=== PATIENT | female | born 1955 | race Caucasian/White ===

== ENCOUNTER 2017-03-21 19:28 | Inpatient (IN) | payer BC ==
[~2017-03-21] VITALS: Ht 157.5 cm; Wt 67.6 kg
[~2017-03-21 19:28] MED LIST: ADVIN10/60 INH; ALBU1AER9 INH; ATOR-22 PO; CALC500C70 PO; EYE PROMISE RESTORE PO; JUICE PLUS PO
[2017-03-21] MEDS ORDERED: ASPI81TA28 PO (20:08)
[2017-03-21] MEDS ORDERED: LEVO-366 PO (20:08)
[2017-03-21] MEDS ORDERED: ZOLM1TAB3 PO (20:08)
[2017-03-21] MEDS ORDERED: PIPERACILLIN/TAZOBACTAM 4.5 GM/100ML D5W IV STA (20:34)
[2017-03-21] MEDS ORDERED: VANCOMYCIN INJ 1,500 MG in SODIUM CHLORIDE 0.9% 500ML 500 ML IV STA (20:34)
[2017-03-21 21:04] LABS: BASO % 0.1 %; BASO ABS # 0.01 K/uL (0-0.2); COMPLETE YES; EOS % 1.4 %; HEMATOCRIT 40.2 % (37-47); IG% 0.4 %; LYMPH % 23.2 %; MEAN CORPUSCULAR HEMOGLOBIN 29.3 pg (25-34); MEAN CORPUSCULAR HGB CONC 33.3 g/dl (32-36); MEAN PLATELET VOLUME 10.4 fL (7.4-10.4); MONO % 8.5 %; NEUT % 66.4 %; PLATELET COUNT 241 K/uL (130-400); RED BLOOD COUNT 4.57 M/uL (4.2-5.4); WHITE BLOOD COUNT 10.36 K/uL (4.8-10.8)
[2017-03-21 21:21] LABS: CALCIUM 9.3 mg/dl (8.5-10.1); CREATININE 1.1 mg/dl (0.60-1.20); POTASSIUM 3.7 mmol/L (3.5-5.1)
[2017-03-21] MEDS ORDERED: ACETAMINOPHEN 325 MG TAB PO PRN (21:30)
[2017-03-21] MEDS ORDERED: IBUPROFEN 200 MG TAB PO PRN (21:30)
[2017-03-21] MEDS ORDERED: PROMETHAZINE HCL INJ 12.5 MG in SODIUM CHLORIDE 0.9% 50ML 50 ML IV PRN (21:30)
[2017-03-21] MEDS ORDERED: DiphenhydrAMINE HCL 50 MG/ML VIAL IV PRN (21:30)
[2017-03-21] MEDS ORDERED: FLUTICASONE/SALMETEROL 100/50 (ADVAIR) 14 PUFF/1 INHALER INH PRN (21:30)
--- NOTE | 2017-03-21 21:51 | DIAGNOSTIC IMAGING REPORT ---
BREAST LIMITED UNILATERAL CLINICAL HISTORY: 62 years-old Female presenting with cellulitis, implants, concern for abscess. TECHNIQUE: Real-time grayscale ultrasound imaging of the left breast was performed. Color Doppler was also performed. COMPARISON: None. FINDINGS: The left breast implants demonstrates a single well demarcated interface with the overlying breast tissue and clear visualization of the implant contents, consistent with an intact implant. Mild overlying hyperemia of the subcutaneous tissue cannot be excluded. No focal soft tissue fluid collection suggest abscess. IMPRESSION: 1. Intact implants. 2. No evidence of abscess. 3. Subcutaneous hyperemia could suggest cellulitis. Electronically signed by: Keith Oliva M.D. 03/21/2017 9:49 PM Dictated Date/Time: 03/21/2017 9:48 PM
--- NOTE | 2017-03-21 21:53 | DIAGNOSTIC IMAGING REPORT ---
BREAST LIMITED UNILATERAL CLINICAL HISTORY: 62 years-old Female presenting with cellulitis, implants, concern for abscess. TECHNIQUE: Real-time grayscale ultrasound imaging of the right breast was performed. Color Doppler was also performed. COMPARISON: None. FINDINGS: Well demarcated interface of the right breast implant with overlying soft tissue of the right breast, consistent with an intact implant. Mild overlying subcutaneous hyperemia may be present. No focal fluid collection. Trace laminar fluid superficial to the implant noted. IMPRESSION: 1. Intact implant. 2. No evidence of abscess. 3. Trace laminar fluid superficial to the implant could be normal or reactive in the setting of cellulitis. Electronically signed by: Keith Oliva M.D. 03/21/2017 9:51 PM Dictated Date/Time: 03/21/2017 9:50 PM
[2017-03-21] MEDS ORDERED: IV FLUIDS COMPLETED PRN (22:00)
[2017-03-21] MEDS ORDERED: VANCOMYCIN CONSULT ACTIVE PRN (22:00)
[2017-03-21] MEDS ORDERED: PIPERACILL/TAZOBAC CONSULT ACTIVE PRN (22:00)
--- NOTE | 2017-03-21 22:17 | HISTORY & PHYSICAL EXAMINATION ---
DATE OF ADMISSION: 03/21/2017 REASON FOR ADMISSION: Bilateral breast cellulitis. HISTORY OF PRESENT ILLNESS: The patient is a 62-year-old female known to me from breast reconstructive surgery. She underwent right mastectomy with sentinel lymph node biopsy performed by Dr. Isaac in 2009. Subsequent to this, she was evaluated by Dr. Johnson for prophylactic left mastectomy. At that point in time, she desired to proceed with reconstruction. We performed a first stage immediate breast reconstruction on the left, delayed reconstruction on the right using tissue expanders and AlloDerm. Overall, she did well, with a small hematoma of the right breast which resolved. She underwent implant exchange on 02/18/2016. Allergan style 410 anatomic implants were placed. She had MARIA EUGENIA drain in place for several days following the procedure, which were removed. Her recovery process was uneventful. She has not been seen in my office at the end of February 2016. Earlier this morning, around 12 hours prior to her admission, she contacted me via the answering service with concerns about redness along her incisions. She states for about the last 5-6 weeks, she has just generally felt malaise. She had a recent upper respiratory infection, approximately 1 month ago with sore throughout. States over the last 5 days or so, she has just generally not felt well and have low-grade temperature of 99/100. Yesterday, she laid on the couch most of the day with a fever of 100-101. Today, she noted that she had some tenderness in her breast, but did not think to look at this until this morning. She states this morning she had some incisional redness bilaterally, with a streak of the right breast which she described as being the size of 3 silver dollars. We discussed options via telephone and I suggested that she come to the Emergency Room for evaluation and possible IV antibiotics. Alternative option would be oral Levaquin with office followup. She elected Levaquin, and this was sent electronically to her pharmacy earlier today. However, around 8:30 this evening, she presented to the Emergency Department and I was contacted by Dr. Burgos to evaluate her. She stated the redness had began to spread and was located substantially on both breasts. She reports tenderness. She has not been febrile since the ER. She does note also that she had some pimples on her left chest which she is scratched previously. She denies any recent history of colonoscopy, dental work, or other symptoms such as urinary tract infection. PAST MEDICAL HISTORY: Significant for breast cancer as noted, migraines, trigeminal neurology, history of asthma and hyperlipidemia. PAST SURGICAL HISTORY: Significant for bilateral mastectomy, sentinel lymph node biopsy, breast reconstruction with implants, hysterectomy, stent placement, anterior vesicourethropexy. MEDICATIONS: Include Advair, aspirin, atorvastatin, calcium with vitamin D, simvastatin, Zomig. ALLERGIES: SULFA DRUGS. FAMILY HISTORY: Significant for breast and ovarian cancer. SOCIAL HISTORY: She is a social drinker, nonsmoker and and lives with her . REVIEW OF SYSTEMS: CONSTITUTIONAL: Positive for fever and malaise as noted, positive for sore through approximately 1 month ago. CARDIOVASCULAR: Negative. GASTROINTESTINAL: Negative. GENITOURINARY: Negative. RENAL: Negative. SKIN: As noted in the HPI. PHYSICAL EXAMINATION: GENERAL: Shows 62-year-old female resting comfortably and in no distress. She is currently afebrile with a temperature of 36.9, pulse 81, respirations 18, blood pressure 138/87 and 97% on room air. HEART: Regular rate and rhythm. LUNGS: Clear. BREASTS: Show reconstructed breasts bilaterally. They are soft without evidence of capsular contracture. There is erythema present along both scars, and extending superiorly and inferiorly along the scars about 4 cm on either side. Cellulitis does not cross the inframammary fold or the midline and is present on both breasts. There are some small healing ulcerations consistent with healing comedones. Breasts are minimally tender to palpation. ABDOMEN: Soft, nontender. LABORATORY STUDIES: Show white blood cell count of 10.3, hemoglobin 13, platelets 241. Sodium 140, potassium 3.7, creatinine 1.1. Ultrasound has been ordered by the Emergency Department and is pending at this time. IMPRESSION: Bilateral breast cellulitis. PLAN: This is a highly unusual for a reconstruction this far out. I do have concerns that she was bacteremic with her upper respiratory infection and has seated her implants. We discussed options for treatment. I agree with obtaining an ultrasound as this will help to determine whether there is any abscess or seroma. Discussed that since she did present to the Emergency Department instead of attempting to remain on oral antibiotics at home, I would recommend that she come in for observation. I feel she will likely need at least 48 hours worth of intravenous antibiotics to determine whether she will turn to corner or whether implants to be removed. We discussed that in some cases if this is unresponsive to antibiotics, she may need to have the implants removed, although we could consider removal with a washout and placement of new implants if we could get the cellulitis under control. Also, discussed that while highly unlikely, she does have textured breast implants in place, and therefore we should be considering breast implant associated lipoma as a possible diagnosis given the late onset of presentation in this case. If there are a seroma noted on ultrasound, it would be elaine to consider aspiration to send for cytometry. Vancomycin and Zosyn have been ordered. Consultation will be placed to infectious disease. Further management will be determined based on clinical response to antibiotics.
[2017-03-21 22:21] VITALS: O2SAT 98
[2017-03-21 23:45] VITALS: Ht 157.5 cm; Wt 67.6 kg
--- NOTE | 2017-03-22 01:55 | EMERGENCY ROOM VISIT NOTE ---
History Report prepared by Emelia: Kathleen Huber Under the Supervision of: Dr. Neymar Burgos M.D. First contact with patient: 19:40 Chief Complaint: WOUND INFECTION Stated Complaint: FEVER,SURGERY 02-17,INCISION AREA INFLAMED Nursing Triage Summary: Pt had surgery on b/l breasts a year ago. Past couple days patient has had on/off fevers and stomach problems. Pt says her incisions on breasts have become more red and sore. Has been taking Tylenol, last dose yesterday. Pt called Dr. Padilla this AM, made appointment for tomorrow. Pt states since phone conversation with Dr. Pdailla she has had increased soreness/swelling, tried call Dr. Padilla and no response from answering service. History of Present Illness The patient is a 62 year old female who presents to the Emergency Room with complaints of an episode of a wound infection starting a few days ago. The patient states that she has a double mastectomy from past breast cancer. She reports that she chose to take the aggressive approach and did not require radiation. She states that she has two implants placed a year ago. She reports that they started to become red and warm. She states that it is sore to the touch. She states that she called Dr. Padilla who said to draw a line around the redness and see if it expands. The patient states that she did so and when it went way out of the lines, she decided to come in. The patient denies any drainage and a history of infections. She complains of a fever, chills, and loss of appetite. She notes that she had the flu a month ago and that she had some pimples that she picked on her left shoulder. Pt denies LOC, headache, diaphoresis, visual changes, neck pain, chest pain, breathing difficulties, nausea, vomiting, abdominal pain, back pain, melena, hematochezia, urinary symptoms, numbness, weakness, lymphadenopathy, rash, or other complaints. Source of History: patient Onset: a few days ago Position: other (global) Quality: other (global) Timing: other (episode) Associated Symptoms: + fevers, + chills Note: The patient complains of loss of appetite. Review of Systems See HPI for pertinent positives and negatives. A total of ten systems were reviewed and were otherwise negative. Past Medical & Surgical Medical Problems: (1) bilateral breast cellulitis (2) Breast cancer Family History No pertinent family history Social History Smoking Status: Never Smoker Marital Status: Housing Status: lives with significant other Current/Historical Medications Scheduled Aspirin (Aspirin Ec), 81 MG PO DAILY Atorvastatin (Lipitor), 20 MG PO HS Calcium/Vitamin D (Os-Rolando 500 Plus D), 1 TAB PO BID Levofloxacin (Levaquin), 500 MG PO DAILY Zolmitriptan (Zomig), 5 MG PO PRN [Eye Promise Restore], 1 CAP PO DAILY AT LUNCH Scheduled PRN Fluticasone Prop/Salmeterol (Advair Diskus 100/50 60 Dose), 1 PUFF INH QAM PRN for Shortness of Breath Allergies Coded Allergies: Sulfa Antibiotics (Verified Allergy, Unknown, HIVES, 03/21/17) Physical Exam Vital Signs Date Time Temp Pulse Resp B/P (MAP) Pulse Ox O2 Delivery O2 Flow Rate FiO2 03/21/17 19:30 36.9 81 18 138/87 97 Room Air Physical Exam GENERAL: Awake, alert, well-appearing, in no distress HENT: Normocephalic, atraumatic. Oropharynx unremarkable. EYES: Normal conjunctiva. Sclera non-icteric. NECK: Supple. No nuchal rigidity. FROM. No JVD. RESPIRATORY: Clear to auscultation. CARDIAC: Regular rate, normal rhythm. Extremities warm and well perfused. Pulses equal. BREAST: Bilateral breast examined. Preincisional redness. Right greater than left. Tenderness and mild warmth. No drainage. ABDOMEN: Soft, non-distended. No tenderness to palpation. No rebound or guarding. No masses. MUSCULOSKELETAL: Chest examination reveals no tenderness. The back is symmetrical on inspection without obvious abnormality. There is no CVA tenderness to palpation. No joint edema. LOWER EXTREMITIES: Calves are equal size bilaterally and non-tender. No edema. No discoloration. NEURO: Normal sensorium. No sensory or motor deficits noted. SKIN: No rash or jaundice noted. Medical Decision & Procedures ER Provider Diagnostic Interpretation: Radiology results as stated below per my review and radiologist interpretation: BREAST LIMITED UNILATERAL CLINICAL HISTORY: 62 years-old Female presenting with cellulitis, implants, concern for abscess. TECHNIQUE: Real-time grayscale ultrasound imaging of the right breast was performed. Color Doppler was also performed. COMPARISON: None. FINDINGS: Well demarcated interface of the right breast implant with overlying soft tissue of the right breast, consistent with an intact implant. Mild overlying subcutaneous hyperemia may be present. No focal fluid collection. Trace laminar fluid superficial to the implant noted. IMPRESSION: 1. Intact implant. 2. No evidence of abscess. 3. Trace laminar fluid superficial to the implant could be normal or reactive in the setting of cellulitis. Electronically signed by: Keith Oliva M.D. 03/21/2017 9:51 PM Dictated Date/Time: 03/21/2017 9:50 PM BREAST LIMITED UNILATERAL CLINICAL HISTORY: 62 years-old Female presenting with cellulitis, implants, concern for abscess. TECHNIQUE: Real-time grayscale ultrasound imaging of the left breast was performed. Color Doppler was also performed. COMPARISON: None. FINDINGS: The left breast implants demonstrates a single well demarcated interface with the overlying breast tissue and clear visualization of the implant contents, consistent with an intact implant. Mild overlying hyperemia of the subcutaneous tissue cannot be excluded. No focal soft tissue fluid collection suggest abscess. IMPRESSION: 1. Intact implants. 2. No evidence of abscess. 3. Subcutaneous hyperemia could suggest cellulitis. Electronically signed by: Keith Oliva M.D. 03/21/2017 9:49 PM Dictated Date/Time: 03/21/2017 9:48 PM Laboratory Results 03/21/17 20:35 Red Blood Count 4.57, Mean Corpuscular Volume 88.0, Mean Corpuscular Hemoglobin 29.3, Mean Corpuscular Hemoglobin Concent 33.3, Mean Platelet Volume 10.4, Neutrophils (%) (Auto) 66.4, Lymphocytes (%) (Auto) 23.2, Monocytes (%) (Auto) 8.5, Eosinophils (%) (Auto) 1.4, Basophils (%) (Auto) 0.1, Neutrophils # (Auto) 6.88, Lymphocytes # (Auto) 2.40, Monocytes # (Auto) 0.88, Eosinophils # (Auto) 0.15, Basophils # (Auto) 0.01 03/21/17 20:35 Test 03/21/17 20:35 White Blood Count 10.36 K/uL (4.8-10.8) Red Blood Count 4.57 M/uL (4.2-5.4) Hemoglobin 13.4 g/dL (12.0-16.0) Hematocrit 40.2 % (37-47) Mean Corpuscular Volume 88.0 fL (80-100) Mean Corpuscular Hemoglobin 29.3 pg (25-34) Mean Corpuscular Hemoglobin Concent 33.3 g/dl (32-36) Platelet Count 241 K/uL (130-400) Mean Platelet Volume 10.4 fL (7.4-10.4) Neutrophils (%) (Auto) 66.4 % Lymphocytes (%) (Auto) 23.2 % Monocytes (%) (Auto) 8.5 % Eosinophils (%) (Auto) 1.4 % Basophils (%) (Auto) 0.1 % Neutrophils # (Auto) 6.88 K/uL (1.4-6.5) Lymphocytes # (Auto) 2.40 K/uL (1.2-3.4) Monocytes # (Auto) 0.88 K/uL (0.11-0.59) Eosinophils # (Auto) 0.15 K/uL (0-0.5) Basophils # (Auto) 0.01 K/uL (0-0.2) RDW Standard Deviation 40.7 fL (36.4-46.3) RDW Coefficient of Variation 12.6 % (11.5-14.5) Immature Granulocyte % (Auto) 0.4 % Immature Granulocyte # (Auto) 0.04 K/uL (0.00-0.02) Anion Gap 8.0 mmol/L (3-11) Est Creatinine Clear Calc Drug Dose 47.2 ml/min Estimated GFR () 61.9 Estimated GFR (Non- 53.4 BUN/Creatinine Ratio 13.0 (10-20) Calcium Level 9.3 mg/dl (8.5-10.1) Laboratory results reviewed by me Medications Administered Medications (Trade) Dose Ordered Sig/Karen Route Start Time Stop Time Status Last Admin Dose Admin Vancomycin HCl 1500 mg/Sodium Chloride 530 ml @ 200 mls/hr ONE STAT IV 03/21/17 20:34 03/21/17 23:12 DC 03/21/17 21:46 200 MLS/HR Piperacillin Sod/ Tazobactam Sod (Zosyn Iv) 4.5 gm NOW STAT IV 03/21/17 20:34 03/21/17 20:35 DC 03/21/17 20:46 4.5 GM ED Course 2016: The patient was evaluated in room B6. A complete history and physical exam was performed. 2027: Discussed the patient's case with Dr. Padilla. The patient will be evaluated for further treatment and disposition. 2033: Ordered Zosyn Iv 4.5 gm IV, Vancomycin HCl 1500 mg/Sodium Chloride 530 ml @ 200 mls/hr IV. 2114: I reevaluated the patient and she was doing well. Medical Decision Triage Nursing notes reviewed and agree them. Additional history obtained from the family. The patient's history was concerning for swelling and redness of the skin in conjunction with breast implants. Differential diagnosis: Etiologies such as cellulitis, necrotizing fasciitis, abscess, MRSA infection, dermatitis, as well as others were entertained.. Physical examination: The physical examination was consistent with cellulitis ER treatment provided: IV vancomycin IV Zosyn On reassessment the patient was stable Diagnostics interpreted by me: The labs revealed an unremarkable CBC and chemistry panel. Imaging studies: Ultrasound as above The patient has bilateral breast cellulitis. She has prior implants in place. Blood cultures are pending. Consultation: A consultation was placed with Dr. Debbie Padilla of plastic surgery. The case was discussed and diagnostics were reviewed. The patient was evaluated in the ER for further treatment. She recommended broad-spectrum antibiotics and treatment in the hospital. She admitted the patient. Consults Time Called: 2024 Consulting Physician: Dr. Padilla Returned Call: 2027 Discussed the patient's case with Dr. Padilla. The patient will be evaluated for further treatment and disposition. Impression Primary Impression: Cellulitis of breast Scribe Attestation The scribe's documentation has been prepared under my direction and personally reviewed by me in its entirety. I confirm that the note above accurately reflects all work, treatment, procedures, and medical decision making performed by me. Departure Information Dispostion Being Evaluated By Dandy Da Silva M.D. (PCP) Patient Instructions My [facility]
[2017-03-22] MEDS: PIPERACILL/TAZOBAC IV 3.375 GM in DEXTROSE 5% 100ML 100 ML IV SCH ×3 (02:09→18:30)
[2017-03-22 06:53] LABS: BASO % 0.4 %; BASO ABS # 0.03 K/uL (0-0.2); COMPLETE YES; EOS % 2.8 %; HEMATOCRIT 39.5 % (37-47); IG% 0.4 %; LYMPH ABS # 2.13 K/uL (1.2-3.4); MEAN CELL VOLUME 87.2 fL (80-100); MEAN CORPUSCULAR HEMOGLOBIN 29.1 pg (25-34); MEAN CORPUSCULAR HGB CONC 33.4 g/dl (32-36); MEAN PLATELET VOLUME 10.6 fL (7.4-10.4); MONO % 9.2 %; NEUT % 62.2 %; PLATELET COUNT 227 K/uL (130-400); RED BLOOD COUNT 4.53 M/uL (4.2-5.4); WHITE BLOOD COUNT 8.51 K/uL (4.8-10.8)
[2017-03-22 07:14] VITALS: BP_SYST 137; PULSE 60; TEMP 36.6; O2SAT 97
[2017-03-22 07:19] LABS: CALCIUM 9.2 mg/dl (8.5-10.1); CREATININE 0.84 mg/dl (0.60-1.20); POTASSIUM 3.9 mmol/L (3.5-5.1)
[2017-03-22] MEDS: MULTIVITAMIN TAB PO SCH (08:35)
[2017-03-22] MEDS: CALCIUM 600MG + VIT D 400 IU TAB PO SCH ×2 (08:36→20:42)
--- NOTE | 2017-03-22 10:30 | Progress Note ---
Progress Note Date of Service Mar 22, 2017. Progress Note Patient feels well this morning. No fevers overnight afebrile VSS bilateral breasts less tender still erythematous, but color has faded a bit WBC 8 blood cultures pending case was discussed with Dr. Parish at bedside; plan to continue IV Abx for another 24 hours then transition to oral meds, likely doxycycline will plan to admit due to likelihood of implant infection in reconstructed breasts
--- NOTE | 2017-03-22 10:50 | INFECT. DISEASE CONSULTATION ---
DATE OF CONSULTATION: 03/22/2017 REQUESTING PHYSICIAN: Debbie Padilla MD HISTORY OF PRESENT ILLNESS: This is a 62-year-old female who was admitted for bilateral breast cellulitis. She initially felt unwell 4-5 days ago was generally fevers and chills at home. This continued to worsen throughout the weekend. On Wednesday morning, she noticed tenderness and redness over her left breast incision. She does have a history of bilateral mastectomy. Four previous diagnosis of breast cancer. She also underwent reconstructive surgery with implants in February 2016. Postoperatively, she was doing well until a few days ago when she noticed tenderness and redness which was worsening over the weekend. She was started on Levaquin yesterday; however, she had worsening throughout the day and eventually was sent to the Emergency Room for intravenous antibiotics. She was placed on vancomycin and Zosyn. Blood cultures were obtained and are pending. She has been afebrile admission to the hospital. She is tolerating her antibiotics well. She states overall today she is feeling better. She did notice some warmth over her left breast incision; however, this has dissipated. She has had no dehiscence of her incisions. She denies any weeping or bleeding. Her erythema has decreased today. I did see her with plastic surgery today. She does admit to having some pimples on her left chest wall which she scratched and opened up a few days prior to feeling unwell otherwise she has no complaints of skin excoriation or any other trauma. She did undergo ultrasound of her bilateral breasts and there was no evidence of fluid collection or rupture of her implant. Her white blood cell count is normal at 8.5. All remaining review of systems are reviewed and are otherwise unremarkable except for as noted. PAST MEDICAL HISTORY: Significant for breast cancer, migraine headaches, trigeminal neuralgia, asthma and hyperlipidemia. PAST SURGICAL HISTORY: Significant for bilateral mastectomy, sentinel lymph node biopsy, breast reconstructive surgery on February 2016, hysterectomy, stent placement and a urethral surgery. ALLERGIES: INCLUDE SULFA ANTIBIOTICS. FAMILY HISTORY: Noncontributory. SOCIAL HISTORY: Negative for tobacco use or drug use. She lives with her family. She drinks occasionally. She has no recent sick contacts. CURRENT MEDICATIONS: Include Lipitor, vancomycin, multivitamin, calcium with vitamin D, Zosyn, Tylenol, Benadryl, Advair. PHYSICAL EXAMINATION: VITAL SIGNS: She is afebrile, pulse 60, respiratory rate 18, blood pressure 137/45, and oxygen saturation is 97% on room air. GENERAL: She is awake, alert and oriented x3. She is in no acute distress. HEENT: Mucous membranes are moist. Extraocular muscles are intact. SKIN: Without rash. HEART: Regular. LUNGS: Clear. ABDOMEN: Nondistended. There is no edema bilaterally. BREASTS: Examination of the breast, minimal erythema bilaterally. There are no open wounds incisions are well healed. There is no tenderness or warmth on the right. There is minimal tenderness on the left with no warmth. She states the erythema has diminished since admission to the hospital. LABORATORY STUDIES: CBC today reveals a white blood cell count of 8.5, hemoglobin 13.2, platelets are 227. Chemistry panel reveals sodium of 140, potassium 3.9, chloride 106, bicarbonate 27, BUN 13, creatinine 0.8, glucose is 94, and blood culture is pending. IMAGING: As above. ASSESSMENT AND PLAN: Breast cellulitis. She will remain on empiric antibiotics pending blood cultures. If she continues to have significant improvement and remains clinically stable. She will likely be transitioned to oral antibiotics consisting of doxycycline 100 mg twice daily for 10-14 days post-discharge from the hospital. We will follow along with you. Thank you for this consultation.
--- NOTE | 2017-03-22 11:11 | Progress Note ---
Progress Note Date of Service Mar 22, 2017. Progress Note ID Consult Dictated #[id number] A/P: 1. Breast Cellulitis -Continue IV abx for now, hopefully can transition to po abx soon -Follow blood cultures -No plans for OR, discussed with surgery -Will follow, thank you
[2017-03-22] MEDS: VANCOMYCIN INJ 1,000 MG in SODIUM CHLORIDE 0.9% 250ML 250 ML IV SCH (11:35)
[2017-03-22 15:05] VITALS: BP 138/83; PULSE 66; TEMP 36.8; O2SAT 98
[2017-03-22] MEDS ORDERED: ATORVASTATIN 20 MG TAB PO SCH (21:00)
[2017-03-22 23:01] VITALS: BP 137/80; PULSE 60; TEMP 36.8; O2SAT 99
[2017-03-23] MEDS: PIPERACILL/TAZOBAC IV 3.375 GM in DEXTROSE 5% 100ML 100 ML IV SCH ×2 (01:56→09:40)
[2017-03-23] MEDS: VANCOMYCIN INJ 1,000 MG in SODIUM CHLORIDE 0.9% 250ML 250 ML IV SCH (03:57)
[2017-03-23 06:29] LABS: CREATININE 0.87 mg/dl (0.60-1.20)
[2017-03-23 07:10] VITALS: BP 128/77; PULSE 62; TEMP 36.2; O2SAT 98
[2017-03-23] MEDS: CALCIUM 600MG + VIT D 400 IU TAB PO SCH (08:31)
[2017-03-23] MEDS: MULTIVITAMIN TAB PO SCH (08:31)
--- NOTE | 2017-03-23 09:59 | Progress Note ---
Progress Note Date of Service Mar 23, 2017. Progress Note Patient doing well. No fevers. Reports improvement in breast redness afebrile VSS breasts with only minimal pink discoloration at this point less tender blood cultures negative so far Discussed plans for discharge. Will defer to infectious disease as to whether she needs additional IV abx or is ready for d/c on PO doxycycline Follow up in the office 2 weeks post discharge.
--- NOTE | 2017-03-23 10:09 | Discharge Instructions ---
Discharge Instructions Date of Service Mar 23, 2017. Admission Reason for Admission: Bilateral Breast Cellulitis Discharge Discharge Diagnosis / Problem: breast cellulitis, implant infection, history of breast recon with implants Discharge Goals Goal(s): Decrease discomfort, Improve function Activity Recommendations Activity Limitations: resume your previous activity Lifting Limitations: none Exercise/Sports Limitations: none May Resume Sexual Activity: when tolerated Shower/Bathe: no limitations Driving or Machine Use: no limitations . Instructions / Follow-Up Instructions / Follow-Up call office for followup appointment in 2 weeks ([phone]) Current Hospital Diet Patient's current hospital diet: Regular Diet Discharge Diet Recommended Diet: Regular Diet Pending Studies Studies pending at discharge: yes List of pending studies: blood cultures Laboratory Results Test 03/21/17 20:35 03/22/17 06:03 03/23/17 05:35 White Blood Count 10.36 8.51 Red Blood Count 4.57 4.53 Hemoglobin 13.4 13.2 Hematocrit 40.2 39.5 Mean Corpuscular Volume 88.0 87.2 Mean Corpuscular Hemoglobin 29.3 29.1 Mean Corpuscular Hemoglobin Concent 33.3 33.4 Platelet Count 241 227 Mean Platelet Volume 10.4 10.6 Neutrophils (%) (Auto) 66.4 62.2 Lymphocytes (%) (Auto) 23.2 25.0 Monocytes (%) (Auto) 8.5 9.2 Eosinophils (%) (Auto) 1.4 2.8 Basophils (%) (Auto) 0.1 0.4 Neutrophils # (Auto) 6.88 5.30 Lymphocytes # (Auto) 2.40 2.13 Monocytes # (Auto) 0.88 0.78 Eosinophils # (Auto) 0.15 0.24 Basophils # (Auto) 0.01 0.03 RDW Standard Deviation 40.7 40.9 RDW Coefficient of Variation 12.6 12.7 Immature Granulocyte % (Auto) 0.4 0.4 Immature Granulocyte # (Auto) 0.04 0.03 Sodium Level 140 140 Potassium Level 3.7 3.9 Chloride Level 105 106 Carbon Dioxide Level 27 27 Anion Gap 8.0 7.0 Blood Urea Nitrogen 14 13 BUN/Creatinine Ratio 13.0 16.0 Random Glucose 110 94 Calcium Level 9.3 9.2 Creatinine 0.84 0.87 Est Creatinine Clear Calc Drug Dose 61.8 59.7 Estimated GFR () 85.7 82.2 Estimated GFR (Non- 74.0 70.9 Work Instructions Return To Work: 2 days 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 Who to Call and When: Medical Emergencies: If at any time you feel your situation is an emergency, please call 911 immediately. . Non-Emergent Contact Non-Emergency issues call your: Primary Care Provider, Surgeon Call Non-Emergent contact if: you have a fever, your pain is worsening, wound has increased redness . "Provider Documentation" section prepared by Debbie Padilla. . VTE Core Measure Inpt VTE Proph given/why not?: SCD's
[2017-03-23 11:50] VITALS: BP 128/77; PULSE 62; TEMP 36.2; O2SAT 98
--- NOTE | 2017-03-23 13:39 | Progress Note ---
Subjective Date of Service: Mar 23, 2017. Subjective Pt evaluation today including: conversation w/ patient, physical exam, chart review, lab review pt for d/c. feeling better. no c/o pain, no f/c. tolerating IV abx. blood cultures negative. wbc nml. All remaining ros reviewed and are negative. Problem List Medical Problems: (1) Cellulitis of breast Status: Acute Objective Vital Signs Date Time Temp Pulse Resp B/P (MAP) Pulse Ox O2 Delivery O2 Flow Rate FiO2 03/23/17 11:50 36.2 62 14 98 Room Air 03/23/17 07:53 Room Air 03/23/17 07:10 36.2 62 14 128/77 (94) 98 Room Air 03/22/17 23:25 Room Air 03/22/17 23:01 36.8 60 16 137/80 (99) 99 Room Air 03/22/17 15:27 Room Air 03/22/17 15:05 36.8 66 16 138/83 (101) 98 Room Air Physical Exam General Appearance: WD/WN, no apparent distress Eyes: normal inspection, EOMI Neck: supple Respiratory/Chest: lungs clear, normal breath sounds, no respiratory distress Cardiovascular: regular rate, rhythm, no edema Abdomen: soft Extremities: normal inspection, no pedal edema Neurologic/Psychiatric: alert, oriented x 3 Skin: normal color, warm/dry, no rash Comments: breast incisions closed, no erythema, much improved. non tender, no warmth. no induration Laboratory Results Item Value Date Time Blood Culture - Preliminary Resulted 03/21/172034 Blood NO GROWTH TO DATE. Blood Culture - Preliminary Resulted 03/21/172044 Blood NO GROWTH TO DATE. Last 24 Hours Test 03/23/17 05:35 Creatinine 0.87 mg/dl Est Creatinine Clear Calc Drug Dose 59.7 ml/min Estimated GFR () 82.2 Estimated GFR (Non- 70.9 Assessment and Plan (1) bilateral breast cellulitis Assessment & Plan: will transition to po doxy 100mg po bid with food to complete 10 more days. ok for d/c from ID standpoint
[2017-03-23] MEDS ORDERED: DOXY1TAB6 PO (14:49)
[2017-03-23] MEDS ORDERED: VANCOMYCIN TROUGH SCH (19:30)
--- NOTE | 2017-03-24 07:58 | DISCHARGE SUMMARY ---
ADMISSION DIAGNOSIS: Breast cellulitis secondary to probable breast implant infection, history of breast reconstruction with silicone implants for breast cancer. SECONDARY DIAGNOSES: Hyperlipidemia, migraines, trigeminal neuralgia, asthma. PROCEDURES: None. CONSULTATION: Cindy Parish DO, infectious disease. HOSPITAL COURSE: The patient is a 62-year-old female known to me from breast reconstruction which was completed in February of 2016. She contacted me via the answering service with concerns about fever and spreading redness of both breasts. She was started outpatient on Levaquin, but became concerned as the redness appeared to be rapidly worsening and so she presented to the Emergency Department. Given her history of breast reconstruction with silicone implants, I initially brought her in for observation, followed by subsequent admission for intravenous antibiotics. She had a workup which included ultrasound for breasts, showing no abscess, and was treated with vancomycin and Zosyn. Blood cultures showed no growth at the time of discharge. Within 48 hours of beginning intravenous antibiotics, she had substantial improvement of the redness of her breasts. She was therefore discharged to home on doxycycline 100 mg p.o. b.i.d. as per Dr. Parish's recommendations. She may resume all of her other home medications. She will call our office to schedule followup appointment in 2 weeks.
== END 2017-03-23 15:23 | disposition home or self-care (01) | DRG 600 ==
LOC: C.EDB 19:29 → C.3E 21:27 → ENRESERV 22:05 → OBSVTOIN 03-22 10:29
PROVIDERS: ADMIT Plastic Surgery; ATTEND Plastic Surgery
DX: N61.0 Mastitis without abscess (principal); T81.4XXA Infection following a procedure, initial encounter; Z85.3 Personal history of malignant neoplasm of breast; Z79.82 Long term (current) use of aspirin; G50.0 Trigeminal neuralgia; Z98.82 Breast implant status; Y84.9 Medical procedure, unspecified as the cause of abnormal reaction of the patient, or of later complication, without mention of misadventure at the time of the procedure

== ENCOUNTER → 2017-04-05 | Outpatient (CLI) | payer BC ==
[~2017-04-05] MED LIST changes: -ALBU1AER9 INH; +ASPI81TA28 PO; -JUICE PLUS PO; +ZOLM1TAB3 PO
== END | disposition home or self-care (01) ==
LOC: C.LAB1850 14:19
PROVIDERS: ATTEND Obstetrics & Gynecology
DX: Z80.41 Family history of malignant neoplasm of ovary (principal)

== ENCOUNTER 2019-06-05 02:31 | Inpatient (IN) ==
[2019-06-05] MEDS ORDERED: SODIUM CHLORIDE 0.9% 1000ML 1,000 ML IV ONE (02:52)
[2019-06-05 03:26] LABS: Basophils # (auto) 0.03 K/uL (0-0.2); Basophils % (auto) 0.4 %; Eosinophils # (auto) 0.21 K/uL (0-0.5); Hematocrit (blood only) 42.3 % (37-47); Hemoglobin 14.5 g/dL (12.0-16.0); Immature Granulocytes # (auto) 0.01 K/uL (0.00-0.02); Immature Granulocytes % (auto) 0.1 %; Lymphocytes # (auto) 1.66 K/uL (1.2-3.4); Mean Corpuscular Hemoglobin 30.1 pg (25-34); Mean Corpuscular Hgb Conc 34.3 g/dL (32-36); Mean Corpuscular Volume 87.8 fL (80-100); Mean Platelet Volume 11.1 fL (7.4-10.4); Monocytes # (auto) 0.53 K/uL (0.11-0.59); Monocytes % (auto) 7.6 %; Neutrophils # (auto) 4.49 K/uL (1.4-6.5); Neutrophils % (auto) 64.9 %; Platelet Count 197 K/uL (130-400); RDW Coefficient of Variation 12.6 % (11.5-14.5); RDW Standard Deviation 40.5 fL (36.4-46.3); Red Blood Count 4.82 M/uL (4.2-5.4); White Blood Count 6.93 K/uL (4.8-10.8)
[2019-06-05 03:29] LABS: Appearance Urine Clear (Clear); Bilirubin Urine Negative (Negative); Blood Urine Negative (Negative); Color Urine Yellow; Glucose Urine UA Negative (Negative); Ketones Urine Negative (Negative); Leukocyte Esterase Urine Negative (Negative); Nitrite Urine Negative (Negative); Protein Urine Negative (Negative); Specific Gravity Urine 1.018 (1.000-1.030); Urobilinogen Urine Negative (Negative)
[2019-06-05 03:43] LABS: BUN Creatinine Ratio 13.7 (10-20); Creatinine Clr Calc Pharmacy 50.4 ml/min; Est GFR (African American) 67.7; Est GFR (Non-African American) 58.4; Potassium 3.6 mmol/L (3.5-5.1)
[2019-06-05 03:46] LABS: Albumin Globulin Ratio 1.2 (0.9-2); Bilirubin,Total 0.4 mg/dl (0.2-1); Globulin 3.4 gm/dl (2.5-4.0); Total Protein 7.4 gm/dl (6.4-8.2)
[2019-06-05] MEDS ORDERED: SODIUM CHLORIDE 0.9% 500 ML IV ONE (03:52)
[2019-06-05] MEDS ORDERED: IMIPENEM/CILASTATIN SODIUM 500 MG in DEXTROSE 5% 100 ML IV STA (04:18)
[2019-06-05] MEDS ORDERED: ALBUT/IPRATROP 3MG/0.5MG NEB 3 ML VIAL INH PRN (06:03)
[2019-06-05] MEDS ORDERED: ONDANSETRON INJ 2 MG/ML 2 ML VIAL IV PRN ×2 (06:03→16:49)
[2019-06-05] MEDS ORDERED: HYDROmorphone INJ 0.5 MG/0.5 ML SYR IV PRN (06:03)
[2019-06-05] MEDS ORDERED: POLYETHYLENE (MIRALAX) 17 GM PACK PO PRN ×2 (06:03→09:44)
[2019-06-05] MEDS ORDERED: ACETAMINOPHEN 325 MG TAB PO PRN ×2 (06:03→09:45)
--- NOTE | 2019-06-05 06:35 | Emergency Department Note ---
Entered by Sriram Vallejo acting as a scribe for History of Present Illness General Chief complaint: Urinary Symptoms Stated complaint: PAIN RT SIDE TO BACK,UTI Time Seen by Provider: 06/05/19 02:38 Source: patient History of Present Illness Onset (ago): week(s) 1 Location: abdomen Pain Consistency: + constant Maximum Pain Intensity: 5 Quality: + other (urinary symptoms) Associated symptoms: + other (Positive for right flank pain, a fever, and chills. Negative for nausea and vomiting.) The patient is a 64 year old female who presents to the emergency department with complaints of constant urinary symptoms beginning a week ago. The patient states that she has had urinary symptoms for the last week. She notes that she was diagnosed with a UTI and has been taking an antibiotic for three days. She reports that she developed right flank pain last night. The patient states that her right flank pain radiates around to her right back. She also complains of a fever and chills. She denies any nausea and vomiting. She notes that she has a previous history of UTIs, but she reports that she has not had one in several years. The patient states that she does not have a history of kidney stones, but she notes that she has a history of high cholesterol. Home Medications Home Medications Medication Instructions Recorded Confirmed Type zolmitriptan 5 mg tablet 5 mg PO Q2H PRN 02/20/19 06/05/19 History A-F Beta Food 1 dose PO DAILY 06/05/19 06/05/19 History Eye Promise Restore 1 dose PO DAILY 06/05/19 06/05/19 History ProAir HFA 2 puff INHALATION QID 06/05/19 06/05/19 History atorvastatin 20 mg PO DAILY 06/05/19 06/05/19 History calcium carbonate-vitamin D3 1 tab PO DAILY 06/05/19 06/05/19 History [Calcium 600 + D(3)] fluticasone propion-salmeterol 1 ea INHALATION UD 06/05/19 06/05/19 History [Advair Diskus] ipratropium-albuterol 3 ml INHALATION Q4H PRN 06/05/19 06/05/19 History Allergies Allergy/AdvReac Type Severity Reaction Status Date / Time Sulfa (Sulfonamide Allergy Unknown HIVES Verified 06/05/19 04:11 Antibiotics) Past Med/Surg History Medical History (Updated 06/05/19 @ 04:29 by Sriram Vallejo) Breast cancer Encounter for breast reconstruction following mastectomy High cholesterol Migraine Surgical History (Updated 02/20/19 @ 13:55 by Juanito Avina) H/O mastectomy H/O: hysterectomy Family History (Updated 02/20/19 @ 13:57 by Juanito Avina) Mother Breast cancer Ovarian cancer Father Colorectal cancer Social History (Updated 02/20/19 @ 13:56 by Juanito Avina) Preferred Language: Faroese Communication Ability: Effective 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 and A total of 10 systems reviewed and were otherwise negative Physical Exam Vital Signs Vital Signs - 24 hr 06/05/19 02:33 06/05/19 03:52 Temperature 36.5 C Temperature Source Oral Pulse Rate 57 L Pulse Rate [Bilateral] 72 Respiratory Rate 18 16 Respiratory Effort / Characteristics Non-Labored Spontaneous Respiratory Depth Normal Respiratory Pattern Regular Blood Pressure 175/107 H Blood Pressure [Left Arm] 150/81 H Blood Pressure Mean 129 Blood Pressure Mean [Left Arm] 104 Blood Pressure Position [Left Arm] Sitting Pulse Oximetry 97 96 Oxygen Delivery Method Room Air Sepsis Recent Fever Within 48 Hours No Sepsis New/Unexplained Change in Mental Status No Sepsis Action Taken by Nursing No Action Required HEENT: Head - normocephalic and atraumatic Pupils are equal, round, and reactive to light. Extraocular eye muscles are intact, and sclera are anicteric. Nose - moist nasal mucosa without discharge. Mouth - moist buccal mucosa. Oropharynx is nonerythematous and there is no tonsillar exudate or edema noted. Neck: Supple; no cervical lymphadenopathy. Heart: Regular rate and rhythm. There is a normal S1 and S2 with no murmurs, clicks, or gallops appreciated. Lungs: Clear to auscultation bilaterally with no wheezes, rales, or rhonchi. Back: Right CVA tenderness. Abdomen: Soft, completely nontender, nondistended, with good bowel sounds. There are no palpable pulsatile masses or hepatosplenomegaly. There is no guarding, rigidity, or rebound noted. Extremities: No evidence of cyanosis, clubbing, or edema. There are easily palpable peripheral pulses. Skin: warm and dry with good turgor and no rashes. Course Course 0244: The patient was evaluated in room A4. A complete history and physical examination were performed. Nursing notes and previous electronic medical records were reviewed. IV lock was established and labs were drawn as above. A septic protocol was performed. The patient will go for CT scan of the abdomen/pelvis. 0324: Sodium Chloride 1000 mls @ 999 mls/hr IV 0409: Sodium Chloride 500 mls @ 999 mls/hr IV 0411: I rechecked the patient. She remains pain-free at this time. 0417: Upon reevaluation, the patient is stable. I discussed the findings and the treatment plan with the patient. She expresses agreement and understanding. I spoke with Dr. Scott of the [facility]. The patient will be evaluated for further management. 0550: The patient's repeat lactate was 1.6. I discussed the patient's CT findings with Dr. Leonard - [facility]. Consultations Consultation #1: I reviewed the patient's case with Dr. Scott - [facility]. He will evaluate the patient for further management. Time: 04:17 Consultation #2: I discussed the patient's CT findings with Dr. Horacio Spear [facility]. Time: 05:50 Administered Medications Discontinued Medications Sodium Chloride (Nss 1000ml) 1,000 mls @ 999 mls/hr IV .Q1H1M ONE Stop: 06/05/19 03:52 Last Infusion: 06/05/19 04:28 Dose: 0 mls/hr Documented by: [id number] Admin: 06/05/19 03:24 Dose: 999 mls/hr Documented by: [id number] Sodium Chloride (Nss) 500 mls @ 999 mls/hr IV .Q31M ONE Stop: 06/05/19 04:22 Last Infusion: 06/05/19 04:47 Dose: 0 mls/hr Documented by: [id number] Admin: 06/05/19 04:09 Dose: 999 mls/hr Documented by: [id number] Imipenem/Cilastatin Sodium 500 (mg/ Dextrose) 110 mls @ 100 mls/hr IV NOW STA; Protocol Stop: 06/05/19 05:23 Last Infusion: 06/05/19 06:25 Dose: 0 mls/hr Documented by: [id number] Admin: 06/05/19 04:58 Dose: 100 mls/hr Documented by: [id number] Medical Decision Making Differential Diagnosis Differential diagnoses include: pyelonephritis, ureteral calculi, infected kidney stone, and cystitis. Medical Records Attestation: I reviewed the patient's medical records. Home Medications Current Medication List: was personally reviewed by me Laboratory Data Attestation: I reviewed the patient's lab results. Result diagrams: 06/05/19 03:13 06/05/19 03:13 Lab Results 06/05/19 06/05/19 06/05/19 Range/Units 03:13 03:13 03:13 WBC 6.93 (4.8-10.8) K/uL RBC 4.82 (4.2-5.4) M/uL Hgb 14.5 (12.0-16.0) g/dL Hct 42.3 (37-47) % MCV 87.8 (80-100) fL MCH 30.1 (25-34) pg MCHC 34.3 (32-36) g/dL RDW Std Deviation 40.5 (36.4-46.3) fL RDW Coeff of Eliza 12.6 (11.5-14.5) % Plt Count 197 (130-400) K/uL MPV 11.1 H (7.4-10.4) fL Immature Gran % (Auto) 0.1 % Neut % (Auto) 64.9 % Lymph % (Auto) 24.0 % Murray % (Auto) 7.6 % Eos % (Auto) 3.0 % Baso % (Auto) 0.4 % Immature Gran # (Auto) 0.01 (0.00-0.02) K/uL Neut # (Auto) 4.49 (1.4-6.5) K/uL Lymph # (Auto) 1.66 (1.2-3.4) K/uL Murray # (Auto) 0.53 (0.11-0.59) K/uL Eos # (Auto) 0.21 (0-0.5) K/uL Baso # (Auto) 0.03 (0-0.2) K/uL Sodium 141 (136-145) mmol/L Potassium 3.6 (3.5-5.1) mmol/L Chloride 109 H (98-107) mmol/L Carbon Dioxide 26 (21-32) mmol/L Anion Gap 6.0 (3-11) BUN 14 (7-18) mg/dl Creatinine 1.01 (0.6-1.2) mg/dl Est Cr Clr Drug Dosing 50.4 ml/min Est GFR ( Amer) 67.7 Est GFR (Non-Af Amer) 58.4 BUN/Creatinine Ratio 13.7 (10-20) Glucose 147 H (70-99) mg/dl Lactate 2.2 H* (0.4-2.0) mmol/L Calcium 9.0 (8.5-10.1) mg/dl Total Bilirubin 0.4 (0.2-1) mg/dl AST 28 (15-37) U/L ALT 44 (12-78) U/L Alkaline Phosphatase 68 (45-117) U/L Total Protein 7.4 (6.4-8.2) gm/dl Albumin 4.0 (3.4-5.0) gm/dl Globulin 3.4 (2.5-4.0) gm/dl Albumin/Globulin Ratio 1.2 (0.9-2) Urine Color Urine Appearance (Clear) Urine pH (4.5-7.5) Ur Specific [place] (1.000-1.030) Urine Protein (Negative) Urine Glucose (UA) (Negative) Urine Ketones (Negative) Urine Blood (Negative) Urine Nitrite (Negative) Urine Bilirubin (Negative) Urine Urobilinogen (Negative) Ur Leukocyte Esterase (Negative) 06/05/19 Range/Units 03:23 WBC (4.8-10.8) K/uL RBC (4.2-5.4) M/uL Hgb (12.0-16.0) g/dL Hct (37-47) % MCV (80-100) fL MCH (25-34) pg MCHC (32-36) g/dL RDW Std Deviation (36.4-46.3) fL RDW Coeff of Eliza (11.5-14.5) % Plt Count (130-400) K/uL MPV (7.4-10.4) fL Immature Gran % (Auto) % Neut % (Auto) % Lymph % (Auto) % Murray % (Auto) % Eos % (Auto) % Baso % (Auto) % Immature Gran # (Auto) (0.00-0.02) K/uL Neut # (Auto) (1.4-6.5) K/uL Lymph # (Auto) (1.2-3.4) K/uL Murray # (Auto) (0.11-0.59) K/uL Eos # (Auto) (0-0.5) K/uL Baso # (Auto) (0-0.2) K/uL Sodium (136-145) mmol/L Potassium (3.5-5.1) mmol/L Chloride (98-107) mmol/L Carbon Dioxide (21-32) mmol/L Anion Gap (3-11) BUN (7-18) mg/dl Creatinine (0.6-1.2) mg/dl Est Cr Clr Drug Dosing ml/min Est GFR ( Amer) Est GFR (Non-Af Amer) BUN/Creatinine Ratio (10-20) Glucose (70-99) mg/dl Lactate (0.4-2.0) mmol/L Calcium (8.5-10.1) mg/dl Total Bilirubin (0.2-1) mg/dl AST (15-37) U/L ALT (12-78) U/L Alkaline Phosphatase (45-117) U/L Total Protein (6.4-8.2) gm/dl Albumin (3.4-5.0) gm/dl Globulin (2.5-4.0) gm/dl Albumin/Globulin Ratio (0.9-2) Urine Color Yellow Urine Appearance Clear (Clear) Urine pH 5.0 (4.5-7.5) Ur Specific [place] 1.018 (1.000-1.030) Urine Protein Negative (Negative) Urine Glucose (UA) Negative (Negative) Urine Ketones Negative (Negative) Urine Blood Negative (Negative) Urine Nitrite Negative (Negative) Urine Bilirubin Negative (Negative) Urine Urobilinogen Negative (Negative) Ur Leukocyte Esterase Negative (Negative) Imaging Data Radiologist's Impression: Radiology results as stated below per my review and the radiologist's interpretation: CT ABDOMEN & PELVIS Without Contrast: There is a 3mm obstructing stone at the right UVJ with moderate upstream hydroureteronephorsis. Radiologist: Brian Parra MD. Blood Pressure Blood Pressure Findings: Elevated blood pressure Blood Pressure Disposition: further management by hospitalist ACACIA Greenwood The patient is a 64 year old female who presents to the emergency department with complaints of constant urinary symptoms beginning a week ago. The patient took antibiotics for the past 3 or 4 days with no improvement of her right flank. Patient became more concerned tonight when she developed chills and nausea. The patient is afebrile here in the emergency department with no leukocytosis. The patient did have an elevated lactate at 2.2. CT scan of the abdomen/pelvis shows evidence of a right-sided ureteral stone that appears to be obstructing with hydronephrosis. The patient was comfortable throughout her stay here in the emergency department. I discussed the case with the [facility] hospitalist and they will evaluate for further management. I also discussed the case with Dr. Leonard from urology. A repeat lactate was performed and had decreased to 1.6. We did not think this obstructing stone and she did not appear to be septic. Impression & Plan Urinary tract obstruction due to kidney stone, UTI (urinary tract infection) Discharge Plan Visit Data *Final* Discharge Date/Time: 06/05/19 05:37 Chief Complaint: Urinary Symptoms Stated Complaint: PAIN RT SIDE TO BACK,UTI ED Provider: Nilsa Duncan Discharge Problem: Urinary tract obstruction due to kidney stone, UTI (urinary tract infection) Patient Disposition: Admitted As Inpatient Discharge Instructions Interventions: ED Discharge Assessment Last Done: 06/05/19 05:37 Discharge Problem: UTI (urinary tract infection) Qualifiers: Urinary tract infection type: site unspecified Hematuria presence: without sophie turia Qualified Code(s): N39.0 - Urinary tract infection, site not specified The scribe's documentation has been prepared under my direction and personally reviewed by me in its entirety. I confirm that the note above accurately reflects all work, treatment, procedures, and medical decision making performed by me.
[2019-06-05] MEDS: SODIUM CHLORIDE 0.9% 1000ML 1,000 ML IV SCH ×3 (06:38→22:55)
--- NOTE | 2019-06-05 07:31 | CT Scan Report ---
CT SCAN OF THE ABDOMEN AND PELVIS WITHOUT IV CONTRAST CLINICAL HISTORY: Right flank pain. COMPARISON STUDY: No priors. TECHNIQUE: CT scan of the abdomen and pelvis is performed from the lung bases to the proximal femora. Images are reviewed in the axial, sagittal, and coronal planes. IV contrast was not administered for this examination. A dose lowering technique was utilized adhering to the principles of ALARA. CT DOSE: 690.11 mGy.cm FINDINGS: Lung bases: The heart is normal in size and without pericardial effusion. The lung bases are clear. B ilateral breast implants are partially visualized. Liver: The unenhanced liver is normal in size, contour, and attenuation. There is no intrahepatic benjie iary ductal dilatation. Gallbladder: Unremarkable. Spleen: Normal in size and attenuation. Pancreas: Unremarkable. Adrenal glands: Unremarkable. Kidneys: The unenhanced kidneys are normal in size. There is a 4 mm obstructing calculus at the right vesicoureteral junction seen on image #369. This causes mild right hydroureteronephrosis. There is m ild urothelial thickening and periureteric stranding noted around the distal right ureter. No additio nal renal calculi are identified. There is no left-sided hydronephrosis. There is no evidence of cont our deforming renal mass lesion. Abdominal vasculature: The abdominal aorta is normal in course and caliber noting moderate to advance d atherosclerotic calcification. Bowel: There is mild colonic fecal retention. No bowel obstruction is seen. The appendix is well-vis ualized and normal. Peritoneum: There is no intraperitoneal free air or abdominal ascites. There is a fat-containing umbi lical hernia. Lymphadenopathy: None. Pelvic viscera: The bladder wall appears mildly thickened and there is pericystic inflammatory change . The uterus is surgically absent. No adnexal lesion is seen. Skeletal structures: The skeletal structures are osteopenic. There is a mild superior endplate compre ssion deformity of T12. A large Schmorl's node is seen in the superior endplate of L4. No lytic or bl astic lesions are seen. IMPRESSION: 1. There is a 4 mm obstructing calculus at the right vesicoureteral junction. This causes mild right hydroureteronephrosis. 2. The bladder wall appears mildly thickened and there is pericystic stranding. Correlate clinically and with urinalysis for evidence of cystitis. 3. No additional calculi are identified in either kidney. 4. Additional findings as above. Electronically signed by: Paul Brown M.D. 06/05/2019 7:29 AM
--- NOTE | 2019-06-05 08:34 | History and Physical Report ---
DATE OF ADMISSION: 06/05/2019 CHIEF COMPLAINT: Right flank pain. 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 The patient says since last 2 weeks she is having burning micturition and pressure while micturating and she saw family doctor on 06/02/2019 and prescribed Cipro and urine cultures were negative. Tonight in middle of night, she woke up with severe right flank pain, 7/10 in severity. She was feeling chills, because of her symptoms, she came to the ER and the imaging studies showed 3 mm obstructing right kidney stone. She is afebrile and hemodynamically stable currently. No leukocytosis, but lactic acid came back as 2.2. Currently urinalysis is negative. IV antibiotics as ordered in the ER .. Currently, pain is improved. Denies any blood in the urine, no blood in the stools or black stools. No nausea, no sweating, no chest pain or shortness of breath. No cough, no fevers. Has chills, feeling cold. No headache, no dizziness, no blurred vision, no earache, no runny nose, no sore throat, no difficulty swallowing. Appetite is okay. Sleeps okay. ALLERGIES: SULFA ANTIBIOTICS. PAST MEDICAL HISTORY: As mentioned above. PAST SURGICAL HISTORY: Breast reconstruction surgery, colonoscopy, mastectomy, partial hysterectomy. MEDICATIONS: The patient is on Cipro 250 mg p.o. b.i.d., Lipitor 20 mg p.o. daily, Advair Diskus 100/50 one puff b.i.d., zolmitriptan 5 mg p.r.n., DuoNebs q.i.d. p.r.n., albuterol ProAir 2 puffs q.i.d., calcium 2 tablets daily. FAMILY HISTORY: Significant for mother had breast and ovarian cancer. SOCIAL HISTORY: . No smoking, alcohol socially. No drug use. REVIEW OF SYMPTOMS: As per HPI. Rest of the review of systems negative. PHYSICAL EXAMINATION: GENERAL: The patient is of moderate build, not in acute distress. VITAL SIGNS: Temperature 36.5, pulse 72, respirations 16, blood pressure 150/81, oxygen 96% room air. HEENT: No pallor, no icterus. Pupils equal, round, and reactive to light. NECK: No JVD, no neck masses, no carotid bruit. CARDIOVASCULAR: S1, S2 heard, regular rate and rhythm, no murmur, no gallop. RESPIRATORY SYSTEM: Normal AP diameter. No accessory muscle use. No wheezing, no crackles. ABDOMEN: Soft, bowel sounds present. Nontender. No CVA tenderness, no guarding, no rigidity. CENTRAL NERVOUS SYSTEM: Cranial nerves II-XII grossly intact. Nonfocal. EXTREMITIES: No edema, no erythema. LABORATORY DATA: WBC 6.9, hemoglobin 14.5, hematocrit 42.3, platelets 197. Sodium 141, potassium 3.6, chloride 109, bicarbonate 26, BUN 14, creatinine 1.01. Serum glucose 147. Lactate 2.2, calcium 9, total bilirubin 0.4, AST 28, ALT 44, alkaline phosphatase 68. Urinalysis negative. CT of abdomen and pelvis, official reading pending. ASSESSMENT AND PLAN: This 64-year-old female who presents with right flank pain and found to have kidney stone. 1. Right Kidney stone and burning micturitions that has been going for last 2 weeks. Recently was started on Cipro. Outpatient cultures were negative. Lactic acid was 2.2 in the ER, and empirically given imipenem in the ER. We will continue with IV Rocephin. Follow the cultures. Otherwise, the patient is having chills. Pain control with IV Dilaudid p.r.n., IV normal saline 125 mL per hour, IV antiemetics p.r.n. Keep n.p.o. and consult Urology in a.m. for the recommendations.Follow full report of ct scan. 2. History of asthma. Continue home inhalers and nebs, currently stable. 3. Obstructive sleep apnea, on CPAP at bedtime. 4. Hyperlipidemia, on statin. 5. History of breast cancer status post mastectomy. 6. Deep venous thrombosis prophylaxis, sequential compression devices. DISPOSITION: Admit to medical floor. Expect to discharge home and follow with family doctor. Level 1, full code. MTDD
[2019-06-05] MEDS ORDERED: ATORVASTATIN 20 MG TAB PO SCH ×2 (09:00→21:00)
[2019-06-05] MEDS ORDERED: cefTRIAXone SODIUM 1,000 MG in DEXTROSE 5% 50 ML IV SCH (09:00)
[2019-06-05] MEDS: FLUTICASONE/SALMETEROL 100/50 (ADVAIR) 14 PUFF/1 INHALER INH SCH ×2 (09:15→20:16)
[2019-06-05] MEDS: ALBUTEROL HFA 8 GM INHALER INH SCH ×4 (09:17→20:17)
[2019-06-05] MEDS ORDERED: Nursing to Pharmacy Communication ONE (09:23)
--- NOTE | 2019-06-05 09:37 | Hospitalist Progress Note ---
Date of Service June 05, 2019 Assessment & Plan (1) Urinary tract obstruction due to kidney stone: right kidney stone with -This 64-year-old female who presents with right flank pain and found to have kidney stone. -burning micturitions that has been going for last 2 weeks with right sided flank pain were the symptoms -was on outpatient ciprofloxacin -CT abdomen in the ED There is a 4 mm obstructing calculus at the right vesicoureteral junction. This causes mild right hydroureteronephrosis. The bladder wall appears mildly thickened and there is pericystic stranding. Correlate clinically and with urinalysis for evidence of cystitis. -urine analysis negative in the ED but this may be false negative as patient had recent antibiotics lactic acid was 2.2 in the ED -IV fluids were started in the ED -ED provider gave imipenem -lactic acid normalized on next repeat lactic acid -admitting hospitalist switched antibiotics to ceftriaxone -admitting hospitalist discussed with urology Dr. Leonard who may offer patient urology procedure -patient currently NPO -continue IV fluids, prn anti-emetics, prn pain medications, bowel regimen medications to prevent opioid related constipation (2) UTI (urinary tract infection): -management as above History of asthma -Continue home inhalers and nebs, currently stable. Obstructive sleep apnea, on CPAP -continue at night Hyperlipidemia -on statin. History of breast cancer status post mastectomy. Deep venous thrombosis prophylaxis, sequential compression devices. Subjective Patient seen and examined at bedside. Currently NPO while awaiting for possible urology procedure for kidney stone. Is ambulatory. Does not appear to be in acute pain. Has IV fluids running. no abdominal pain. right flank pain improved Patient denies vomiting. denies seeing clots in urine. report that urine is clear. no shortness of breath. breathing on room air. no dizziness. no headache Review of Systems Review of Systems: All systems reviewed & are unremarkable except as noted in HPI & below Physical Exam Constitutional: comfortable Eyes: PERRL, conjunctivae normal, anicteric sclerae EOM intact bilaterally ENMT: external ear and nose normal, oropharynx normal Neck: normal visual inspection Cardiovascular: RRR, no murmur, no edema Gastrointestinal (Abdomen): normal bowel sounds, soft, nontender, no hepatosplenomegaly Musculoskeletal: Head/Neck/Chest: normocephalic and head atraumatic Neurologic: PERRL, EOMI, accommodation nl, no face palsy, no dysarthria CN's II-XI intact bilaterally Psychiatric: A+Ox3, euthymic affect Results & Data Vital Signs (Past 12 Hours) Vital Signs Temp Pulse Pulse Resp BP BP Pulse Ox 06/05/19 07:32 36.9 C 56 L 16 155/83 H 97 06/05/19 06:04 37 C 67 16 156/82 H 95 06/05/19 05:37 64 18 156/86 H 97 06/05/19 03:52 72 16 150/81 H 96 06/05/19 02:33 36.5 C 57 L 18 175/107 H 97 (1) UTI (urinary tract infection) Hematuria presence: without hematuria Urinary tract infection type: site unspecified Qualified Code(s): N39.0 - Urinary tract infection, site not specified
[2019-06-05] MEDS ORDERED: OXYCODONE HCL IR 5 MG TAB (IMMEDIATE RELEASE) PO PRN (09:45)
[2019-06-05] MEDS: SENNA 8.6 MG TAB PO SCH (11:18)
[2019-06-05] MEDS ORDERED: ZOLMITRIPTAN PO PRN (15:03)
--- NOTE | 2019-06-05 16:32 | Urology Consultation ---
Date of Consultation June 05, 2019 Assessment & Plan (1) Ureteral stone with hydronephrosis: has right distal ureteral stone 3-4 mm with hydro above it offered to OR today for cysto right ureteroscopy laser lithotripsy basket stone extraction stent also can choose to wait and try to pass stone. Has a very good possibility of passing over the next several weeks, however her pain and bladder irritation will continue until she passes it. she opted for surgery today had ceftriaxone earlier today Present on Admission?: Yes History of Present Illness Reason for Consultation: right ureteral stone Requesting Physician: Dr Chao Attending Physician: Terrell Chao MD History of Present Illness I am asked by Di Chao to evaluate and treat patient for right ureteral stone. She has had mild irritative bladder symptoms for a week. She was given Cipro in late May but culture was no growth. Last night she developed right flank pain. In E CT shows a right distal 3-4 mm ureteral stone with hydroureteronephrosis. Her u/a is normal her white count is normal and she has been afebrile. her lactic acid was slightly elevated but the CO2 on her chem 7 was 26 so this was probably wrong. Her 2 hour repeat lactic acid was normal. Allergies Allergy/AdvReac Type Severity Reaction Status Date / Time Sulfa (Sulfonamide Allergy Unknown HIVES Verified 06/05/19 04:11 Antibiotics) Home Medications Home Medications Medication Instructions Recorded Confirmed Type zolmitriptan 5 mg tablet 5 mg PO Q2H PRN 02/20/19 06/05/19 History A-F Beta Food 1 dose PO DAILY 06/05/19 06/05/19 History Eye Promise Restore 1 dose PO DAILY 06/05/19 06/05/19 History ProAir HFA 2 puff INHALATION QID 06/05/19 06/05/19 History atorvastatin 20 mg PO DAILY 06/05/19 06/05/19 History calcium carbonate-vitamin D3 1 tab PO DAILY 06/05/19 06/05/19 History [Calcium 600 + D(3)] fluticasone propion-salmeterol 1 ea INHALATION UD 06/05/19 06/05/19 History [Advair Diskus] ipratropium-albuterol 3 ml INHALATION Q4H PRN 06/05/19 06/05/19 History Patient History Medical History (Updated 06/05/19 @ 16:30 by Cindy Leonard MD) Breast cancer Encounter for breast reconstruction following mastectomy High cholesterol Migraine Surgical History (Updated 02/20/19 @ 13:55 by Juanito Avina) H/O mastectomy H/O: hysterectomy Family History (Updated 02/20/19 @ 13:57 by Juanito Avina) Mother Breast cancer Ovarian cancer Father Colorectal cancer Social History (Updated 02/20/19 @ 13:56 by Juanito Avina) Preferred Language: Lithuanian Communication Ability: Effective 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 Beliefs That Will Affect Care: None Current Living Situation: Spouse Other Information That Helps Us Care for You: No Feels Safe at Home: Yes Safety Concerns: Feels Safe At This Time Smoking Status: Never smoker Hx Alcohol Use: Yes Alcohol type: wine Alcohol Intake Frequency: Holidays/Special Occasions Hx Substance Use: No Review of Systems Review of Systems: PMH- breast CA, cholesterol, allergies, sleep apnea mild PSH- partial hysterectomy, bilateral mastectomy with breast implants and a revision Allergy - sulfa Soc- , no tobacco, social infrequent alcohol Fam Hx- mother had breast and ovarian cancer, no stones ROS- no fever + chills, + nausea, no chest pain , no SOB, no rash, no seizures, bowels fine, Physical Exam Respiratory: normal respiratory effort, lungs clear to auscultation Cardiovascular: RRR, no murmur, no edema Gastrointestinal (Abdomen): normal bowel sounds, soft, nontender, no hepatosplenomegaly Skin: no rashes, warm and dry Psychiatric: A+Ox3, euthymic affect Results & Data Vital Signs (Past 12 Hours) Vital Signs Temp Pulse Pulse Pulse Resp BP BP 06/05/19 15:01 36.9 C 63 16 153/91 H 06/05/19 07:32 36.9 C 56 L 16 155/83 H 06/05/19 06:04 37 C 67 16 156/82 H 06/05/19 05:37 64 18 156/86 H Pulse Ox 06/05/19 15:01 96 06/05/19 07:32 97 06/05/19 06:04 95 06/05/19 05:37 97
[2019-06-05] MEDS ORDERED: fentaNYL citrate 100 MCG/2 ML VIAL ONE (16:39)
[2019-06-05] MEDS ORDERED: PROPOFOL IV EMULSION 10 MG/ML 20 ML VIAL IV ONE (16:39)
[2019-06-05] MEDS ORDERED: LIDOCAINE HCL 2% 2 ML VIAL/AMP(20MG/ML) INFIL ONE (16:39)
[2019-06-05] MEDS ORDERED: IOTHALAMATE MEGLUMINE II 17.2% 250 ML VIAL ONE (16:48)
[2019-06-05] MEDS ORDERED: ePHEDrine sulfate 50 MG/ML AMP IV PRN (16:49)
[2019-06-05] MEDS ORDERED: fentaNYL citrate 100 MCG/2 ML VIAL IV PRN (16:49)
[2019-06-05] MEDS ORDERED: ATROPINE SULFATE 0.1 MG/ML 10ML SYR IV PRN (16:49)
--- NOTE | 2019-06-05 16:49 | Anesthesiology Consultation ---
Date of Service June 05, 2019 Assessment & Plan ASA ASA2 Proposed Anesthesia Anesthesia Type: General Risk / Benefits Reviewed With: PT / POA / Parent / Guardian, Accepts Plan and Informed Consent Obtained History Surgery Operation Date: 06/05/19 13:10 Proposed Procedures p Right Stone Laser Lithotripsy - Cindy Leonard MD Operation Date: 06/05/19 16:30 Proposed Procedures p Cystoscopy, Right Ureteroscopy, Laser Lithotripsy - Basket Stone Extraction - Cindy Leonard MD Height/Weight Height: 5 ft 2 in Weight: 67.3 kg Allergies Allergy/AdvReac Type Severity Reaction Status Date / Time Sulfa (Sulfonamide Allergy Unknown HIVES Verified 06/05/19 04:11 Antibiotics) Medications Home Medications Medication Instructions Recorded Confirmed Last Taken zolmitriptan 5 mg tablet 5 mg PO Q2H PRN 02/20/19 06/05/19 Unknown A-F Beta Food 1 dose PO DAILY 06/05/19 06/05/19 06/04/19 Eye Promise Restore 1 dose PO DAILY 06/05/19 06/05/19 06/04/19 ProAir HFA 2 puff INHALATION QID 06/05/19 06/05/19 Unknown atorvastatin 20 mg PO DAILY 06/05/19 06/05/19 06/04/19 calcium carbonate-vitamin D3 1 tab PO DAILY 06/05/19 06/05/19 06/04/19 [Calcium 600 + D(3)] fluticasone propion-salmeterol 1 ea INHALATION UD 06/05/19 06/05/19 Unknown [Advair Diskus] ipratropium-albuterol 3 ml INHALATION Q4H PRN 06/05/19 06/05/19 Unknown Active Medications Generic Name Dose Route Start Last Admin Trade Name Freq PRN Reason Stop Dose Admin Albuterol 2 puffs 06/05/19 09:00 06/05/19 15:41 Ventolin Hfa INH 07/05/19 08:59 Not Given QID ROGELIO Ceftriaxone Sodium 1,000 mg/ 60 mls @ 100 mls/hr 06/05/19 09:00 06/05/19 10:14 Dextrose IV 06/15/19 08:59 Infused DAILY ROGELIO Infusion Protocol Sodium Chloride 1,000 mls @ 125 mls/hr 06/05/19 06:03 06/05/19 15:05 Nss 1000ml IV 07/05/19 06:02 125 mls/hr .Q8H ROGELIO Administration Fluticasone/Salmeterol 1 puffs 06/05/19 09:00 06/05/19 09:15 Advair Diskus 100/50 INH 07/05/19 08:59 1 puffs Q12 ROGELIO Administration Sennosides 8.6 mg 06/05/19 09:45 06/05/19 11:18 Senokot PO 07/05/19 09:44 Not Given QAM ROGELIO NPO Date Last Intake of Fluids: 06/05/19 Time Last Intake of Fluids: 14:30 Last Intake of Fluids Comment: few chips/sips Date Last Intake of Solids: 06/04/19 Time Last Intake of Solids: 18:30 Past Medical History Medical History Breast cancer Encounter for breast reconstruction following mastectomy High cholesterol Migraine Exercise / Class Metabolic Activity II 4-5 Yardwork/Stairs/Walk up hill Past Family History Family History Mother Breast cancer Ovarian cancer Father Colorectal cancer Past Surgical History Surgical History H/O mastectomy H/O: hysterectomy Past Anesthesia History No Hx of Anesthesia Complications and No Family Hx of Anesthesia Complications History of PONV No Hx of Motion Sickness and History of PONV Social History Smoking Status: Never smoker Hx Alcohol Use: Yes Alcohol type: wine alcohol intake frequency: holidays/special occasions only Hx Substance Use: No substance use type: does not use Review of Systems denies fever/cough/ colds/ chest pain/ SOB/ KARLOS Constitutional: no fever and no chills Respiratory: no cough and no dyspnea denies KARLOS Cardiovascular: no chest pain and no dyspnea on exertion Physical Exam Vital Signs Last Vital Signs Temp 37.1 C 06/05/19 16:45 Pulse 70 06/05/19 16:45 Resp 18 06/05/19 16:45 BP 171/92 H 06/05/19 16:45 Pulse Ox 97 06/05/19 16:45 ENMT Mouth: no TMJ abnormality and no dentition abnormality Thyromental Distance: > or= 3.5 Finger Breadths Mallampati Class: II Neck neck extension not limited Respiratory normal respiratory effort; no respiratory distress Auscultation: lungs clear to auscultation bilaterally Cardiovascular Rate/Rhythm: regular rate and regular rhythm Neurologic moves all extremities Psychiatric Orientation: alert and oriented x 3 Testing Laboratory Results 06/05/19 03:13 06/05/19 03:13 Urine Color Yellow 06/05/19 03:23 Urine Appearance Clear (Clear) 06/05/19 03:23 Urine pH 5.0 (4.5-7.5) 06/05/19 03:23 Ur Specific [place] 1.018 (1.000-1.030) 06/05/19 03:23 Urine Protein Negative (Negative) 06/05/19 03:23 Urine Glucose (UA) Negative (Negative) 06/05/19 03:23 Urine Ketones Negative (Negative) 06/05/19 03:23 Urine Nitrite Negative (Negative) 06/05/19 03:23 Ur Leukocyte Esterase Negative (Negative) 06/05/19 03:23
[2019-06-05] MEDS ORDERED: MIDAZOLAM HCL 1 MG/ML 2ML VIAL ONE (17:31)
[2019-06-05] MEDS ORDERED: ONDANSETRON INJ 2 MG/ML 2 ML VIAL ONE (17:48)
[2019-06-05] MEDS ORDERED: DEXAMETHASONE SOD INJ 4 MG/ML VIAL ONE (17:48)
[2019-06-05] MEDS ORDERED: BELLADONNA/OPIUM SUPP 60 MG SUPP PR PRN (18:18)
[2019-06-05] MEDS ORDERED: BELLADONNA/OPIUM SUPP 60 MG SUPP PR ONE (18:18)
--- NOTE | 2019-06-05 18:31 | Operative Report ---
Post Operative Report Pre & Post Diagnosis Operation Date: 06/05/19 13:10 <No data on this case meets the specified criteria> Operation Date: 06/05/19 16:30 Pre-Op Diagnosis: Right ureteral Stone Post-Op Diagnosis: Right ureteral Stone I identified the patient and participated in the time-out.: Yes Procedure Operation Date: 06/05/19 13:10 <No data on this case meets the specified criteria> Operation Date: 06/05/19 16:30 Actual Procedures p Cystoscopy, Right Ureteroscopy, Laser Lithotripsy - Basket Stone Extraction stent placment (Not Applicable) - Cindy Leonard MD Surgeon Cindy Leonard MD Loop Cutter none Estimated Blood Loss 1 Findings Consistent with Post-Op Diagnosis radio-lucent distal ureteral stone Fluids 600 Specimens right ureteral stone fragments Drains 6 fr 22 centimeter double j stent Anesthesia Type General Complications none Disposition Accompanied Patient To Recovery: Yes Disposition: Recovery Room Indications 3-4 mm right distal stone has not passed in over a week. Severe hydroureter on ct scan. Description of Procedure Patient was given general LMA anesthesia and placed in lithotomy position. Her genitals were prepped and draped in sterile fashion. Time out held with team. I placed a 21 fr rigid cystoscope to bladder. The urethra is unremarkable. She has a severe cystocele such that to see the trigone the scope has to be pointed nearly to the floor. l the right UP is elevated and edematous compared to left. There is no efflux from the right UO. There is no inflammation of bladder and no bladder mucosal lesions. I passed road runner wire up the right ureter with moderate resistance in the distal ureter at site of presumed stone. The stone is radio-lucent on fluoro. I passed a [address] runner again getting moderate resistance at site of expected distal stone. I switched to stiff wire and while changing wires noted brisk bloody urine effluxing from the 5 fr open ended. I placed dual lumen cath to calibrate the Uo staying distal to the stone location. I passed a short semirigid scope over the road runner wire into the distal ureter. The distal ureter is very tight up to the stone but there is di lation above which gave nice room to work on stone. I used a 200 micron holmium laser to crack the stone into 2 fragments and some insignificant dust. I used a 1.9 Fr zero tip basket to remove each fragment in turn. I placed a 24 centimeter 6 Fr double J stent easily. There is brisk efflux after placement. I left bladder empty and concluded case. I placed a belladonna and opium suppository for post-op pain. sHe transferred to recovery under my escort, in stable condition. Plan: Home toMORROW Pyridium for dysuria x 3 days flomax daily for 14 days oral pain meds as needed ASA 3 clean contaminated case 24 seconds fluoro ceftriaxone antibiotic at 10am (24 hour drug) I attest to the content of the Intraoperative Record and any orders documented therein. Any exceptions are noted below.
--- NOTE | 2019-06-05 18:43 | Fluoroscopy Report ---
FL retrograde includes kub CLINICAL HISTORY: CYSTOstone extraction. Stent placement. COMPARISON STUDY: 06/05/2019 FLUOROSCOPY TIME: 24 seconds NUMBER OF FLUOROSCOPIC IMAGES: 4 FINDINGS: Image intensifier utilized for right ureteral stent placement and stone extraction IMPRESSION: Image intensifier utilized for right ureteral stent placement and stone extraction The above report was generated using voice recognition software. It may contain grammatical, syntax or spelling errors. Electronically signed by: Dandy Barry M.D. 06/05/2019 6:42 PM
--- NOTE | 2019-06-05 19:04 | Anesthesiology Progress Note ---
Date of Service June 05, 2019 Anesthesia Post Procedure Vital Signs Vital Signs: Temp Pulse Pulse Pulse Pulse Resp BP 06/05/19 19:00 72 12 06/05/19 18:50 74 12 06/05/19 18:40 77 12 06/05/19 18:33 36.4 C L 83 15 06/05/19 16:45 37.1 C 70 18 06/05/19 15:01 36.9 C 63 16 06/05/19 07:32 36.9 C 56 L 16 06/05/19 06:04 37 C 67 16 06/05/19 05:37 64 18 156/86 H 06/05/19 03:52 72 16 06/05/19 02:33 36.5 C 57 L 18 175/107 H BP Pulse Ox 06/05/19 19:00 184/89 H 97 06/05/19 18:50 179/93 H 100 06/05/19 18:40 179/90 H 100 06/05/19 18:33 161/93 H 100 06/05/19 16:45 171/92 H 97 06/05/19 15:01 153/91 H 96 06/05/19 07:32 155/83 H 97 06/05/19 06:04 156/82 H 95 06/05/19 05:37 97 06/05/19 03:52 150/81 H 96 06/05/19 02:33 97 Pain Intensity Right Flank: Pain Intensity: 3 Transfer of Care Handoff Completed per policy Notes Mental Status: alert / awake / arousable and participated in evaluation Patient Amnestic to Procedure: Yes Nausea / Vomiting: adequately controlled Pain: adequately controlled Airway Patency, RR, SpO2: stable & adequate BP & HR: stable & adequate Hydration State: stable & adequate Anesthetic Complications: no major complications apparent and Pt Satisfied with anesthetic care
[2019-06-05] MEDS ORDERED: PHENAZOPYRIDINE HCL 200 MG TAB PO PRN (19:56)
[2019-06-06] MEDS: SODIUM CHLORIDE 0.9% 1000ML 1,000 ML IV SCH (05:09)
[2019-06-06 05:46] LABS: Basophils # (auto) 0.01 K/uL (0-0.2); Basophils % (auto) 0.1 %; Hematocrit (blood only) 42.4 % (37-47); Hemoglobin 14.1 g/dL (12.0-16.0); Immature Granulocytes # (auto) 0.02 K/uL (0.00-0.02); Immature Granulocytes % (auto) 0.2 %; Lymphocytes # (auto) 0.82 K/uL (1.2-3.4); Lymphocytes % (auto) 9.4 %; Mean Corpuscular Hemoglobin 29.9 pg (25-34); Mean Corpuscular Hgb Conc 33.3 g/dL (32-36); Mean Platelet Volume 11.2 fL (7.4-10.4); Monocytes # (auto) 0.28 K/uL (0.11-0.59); Monocytes % (auto) 3.2 %; Neutrophils # (auto) 7.59 K/uL (1.4-6.5); Neutrophils % (auto) 87.1 %; Platelet Count 217 K/uL (130-400); RDW Coefficient of Variation 12.7 % (11.5-14.5); RDW Standard Deviation 41.7 fL (36.4-46.3); Red Blood Count 4.71 M/uL (4.2-5.4); White Blood Count 8.72 K/uL (4.8-10.8)
[2019-06-06 06:17] LABS: BUN Creatinine Ratio 12.9 (10-20); Calcium 8.5 mg/dl (8.5-10.1); Creatinine Clr Calc Pharmacy 65.5 ml/min; Est GFR (African American) 93.9; Magnesium 2.1 mg/dl (1.8-2.4)
[2019-06-06] MEDS: ALBUTEROL HFA 8 GM INHALER INH SCH (08:12)
[2019-06-06] MEDS: FLUTICASONE/SALMETEROL 100/50 (ADVAIR) 14 PUFF/1 INHALER INH SCH (08:12)
[2019-06-06] MEDS: SENNA 8.6 MG TAB PO SCH (08:13)
--- NOTE | 2019-06-06 08:19 | Anesthesiology Progress Note ---
Date of Service June 06, 2019 Anesthesia Post Procedure Vital Signs Vital Signs: Temp Pulse Pulse Resp BP Pulse Ox 06/06/19 07:14 37.0 C 55 L 16 137/77 96 06/06/19 02:40 37.0 C 70 16 160/76 H 95 06/05/19 22:20 37 C 66 16 145/80 H 94 06/05/19 21:20 37 C 75 16 161/88 H 96 06/05/19 20:32 37 C 73 16 150/89 H 97 06/05/19 20:02 36.7 C 63 16 160/85 H 97 06/05/19 19:20 36.8 C 73 16 160/80 H 98 06/05/19 19:10 36.6 C 70 18 166/87 H 97 06/05/19 19:00 72 12 184/89 H 97 06/05/19 18:50 74 12 179/93 H 100 06/05/19 18:40 77 12 179/90 H 100 06/05/19 18:33 36.4 C L 83 15 161/93 H 100 06/05/19 16:45 37.1 C 70 18 171/92 H 97 06/05/19 15:01 36.9 C 63 16 153/91 H 96 Pain Intensity Right Flank: Pain Intensity: 3 Notes Mental Status: alert / awake / arousable and participated in evaluation Patient Amnestic to Procedure: Yes Nausea / Vomiting: adequately controlled Pain: adequately controlled Airway Patency, RR, SpO2: stable & adequate BP & HR: stable & adequate Hydration State: stable & adequate Anesthetic Complications: no major complications apparent and Pt Satisfied with anesthetic care
--- NOTE | 2019-06-06 09:39 | Hospitalist Progress Note ---
Date of Service June 06, 2019 Assessment & Plan (1) Urinary tract obstruction due to kidney stone: Ureteral stone with hydronephrosis (right distal ureteral stone 3 to 4 mm with hydronephrosis) Cystoscopy, Right Ureteroscopy, Laser Lithotripsy - Basket Stone Extraction stent placement by urologist Dr. Leonard on 06/05/19 -This 64-year-old female who presents with right flank pain and found to have kidney stone. -burning micturitions that has been going for last 2 weeks with right sided flank pain were the symptoms -was on outpatient ciprofloxacin -CT abdomen in the ED There is a 4 mm obstructing calculus at the right vesicoureteral junction. This causes mild right hydroureteronephrosis. The bladder wall appears mildly thickened and there is pericystic stranding. Correlate clinically and with urinalysis for evidence of cystitis. -urine analysis negative in the ED but this may be false negative as patient had recent antibiotics lactic acid was 2.2 in the ED -IV fluids were started in the ED -ED provider gave imipenem -lactic acid normalized on next repeat lactic acid -admitting hospitalist switched antibiotics to ceftriaxone -admitting hospitalist discussed with urology Dr. Leonard who may offer patient urology procedure -Cystoscopy, Right Ureteroscopy, Laser Lithotripsy - Basket Stone Extraction stent placement by urologist Dr. Leonard on 06/05/19 -one more dose of ceftriaxone to be given on 06/06/19 as a post-operative antibiotic Patient to be discharged with medications of Pyridium 3 times a day as needed for dysuria for 3 days Flomax (tamsulosin) daily for 14 days acetaminophen 325 mg every 6 hours as needed for pain or fever Medications sent electronically to [facility] [address] [place] [id number] Patient should call [facility] urology clinic office if any questions on urology follow up Address: [address] [place] [address] , [place] [address] Scheduled appointments 06/09/2019 2:10 PM Provider Dandy Canela MD Department [facility] 06/13/2019 9:00 AM Provider Linda Nicole MD Department Dermatology [facility] (2) UTI (urinary tract infection): -management as above History of asthma -Continue home inhalers and nebs, currently stable. Obstructive sleep apnea, on CPAP -continue at night Hyperlipidemia -on statin. History of breast cancer status post mastectomy. Deep venous thrombosis prophylaxis, sequential compression devices. Discharge Diagnosis: Ureteral stone with hydronephrosis (right distal ureteral stone 3 to 4 mm with hydronephrosis), s/p Cystoscopy, Right Ureteroscopy, Laser Lithotripsy - Basket Stone Extraction stent placement by urologist Dr. Leonard on , urinary tract infection, elevated lactic acid (2.2 on admission, and elevated lactic acid level is resolved) Subjective Patient seen and examined this AM. Reports mild blood tinged urine. Generally comfortable and pain is controlled. no vomiting. she has been ambulatory. no chest pain. no shortness of breath. discharge plans discussed at length Review of Systems Review of Systems: All systems reviewed & are unremarkable except as noted in HPI & below Physical Exam Constitutional: comfortable Eyes: PERRL, conjunctivae normal, anicteric sclerae EOM intact bilaterally ENMT: external ear and nose normal, oropharynx normal Neck: normal visual inspection Cardiovascular: RRR, no murmur, no edema Gastrointestinal (Abdomen): normal bowel sounds, soft, nontender, no hepatosplenomegaly Musculoskeletal: Head/Neck/Chest: normocephalic and head atraumatic Neurologic: PERRL, EOMI, accommodation nl, no face palsy, no dysarthria CN's II-XI intact bilaterally Psychiatric: A+Ox3, euthymic affect Results & Data Vital Signs (Past 12 Hours) Vital Signs Temp Pulse Pulse Resp BP Pulse Ox 06/06/19 09:31 37.0 C 55 L 70 16 137/77 96 06/06/19 07:14 37.0 C 55 L 16 137/77 96 06/06/19 02:40 37.0 C 70 16 160/76 H 95 06/05/19 22:20 37 C 66 16 145/80 H 94 (1) UTI (urinary tract infection) Hematuria presence: without hematuria Urinary tract infection type: site unspecified Qualified Code(s): N39.0 - Urinary tract infection, site not specified
--- NOTE | 2019-06-06 09:44 | Discharge Summary ---
Date of Service June 06, 2019 Admission HPI Per Admitting Provider [facility] [address], [place] History and Physical Report Signed Patient: SANTINO VALE Date: 06/05/19 MR#: [id number] Phy: Terrell Chao MD Acct ID:[id number] Phy: Dandy Canela MD Date: 1955Fam Phy: Age: 64Location: 3N Sex: F Room/Bed: [facility] cc: ~ DICTATED BY: Stewart Scott MD DATE OF ADMISSION: 06/05/2019 CHIEF COMPLAINT: Right flank pain. 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 The patient says since last 2 weeks she is having burning micturition and pressure while micturating and she saw family doctor on 06/02/2019 and prescribed Cipro and urine cultures were negative. Tonight in middle of night, she woke up with severe right flank pain, 7/10 in severity. She was feeling chills, because of her symptoms, she came to the ER and the imaging studies showed 3 mm obstructing right kidney stone. She is afebrile and hemodynamically stable currently. No leukocytosis, but lactic acid came back as 2.2. Currently urinalysis is negative. IV antibiotics as ordered in the ER .. Currently, pain is improved. Denies any blood in the urine, no blood in the stools or black stools. No nausea, no sweating, no chest pain or shortness of breath. No cough, no fevers. Has chills, feeling cold. No headache, no dizziness, no blurred vision, no earache, no runny nose, no sore throat, no difficulty swallowing. Appetite is okay. Sleeps okay. ALLERGIES: SULFA ANTIBIOTICS. PAST MEDICAL HISTORY: As mentioned above. PAST SURGICAL HISTORY: Breast reconstruction surgery, colonoscopy, mastectomy, partial hysterectomy. MEDICATIONS: The patient is on Cipro 250 mg p.o. b.i.d., Lipitor 20 mg p.o. daily, Advair Diskus 100/50 one puff b.i.d., zolmitriptan 5 mg p.r.n., DuoNebs q.i.d. p.r.n., albuterol ProAir 2 puffs q.i.d., calcium 2 tablets daily. FAMILY HISTORY: Significant for mother had breast and ovarian cancer. SOCIAL HISTORY: . No smoking, alcohol socially. No drug use. REVIEW OF SYMPTOMS: As per HPI. Rest of the review of systems negative. Admission Exam Per Admitting Provider GENERAL: The patient is of moderate build, not in acute distress. VITAL SIGNS: Temperature 36.5, pulse 72, respirations 16, blood pressure 150/81, oxygen 96% room air. HEENT: No pallor, no icterus. Pupils equal, round, and reactive to light. NECK: No JVD, no neck masses, no carotid bruit. CARDIOVASCULAR: S1, S2 heard, regular rate and rhythm, no murmur, no gallop. RESPIRATORY SYSTEM: Normal AP diameter. No accessory muscle use. No wheezing, no crackles. ABDOMEN: Soft, bowel sounds present. Nontender. No CVA tenderness, no guarding, no rigidity. CENTRAL NERVOUS SYSTEM: Cranial nerves II-XII grossly intact. Nonfocal. EXTREMITIES: No edema, no erythema. Principal Diagnosis Ureteral stone with hydronephrosis (right distal ureteral stone 3 to 4 mm with hydronephrosis), s/p Cystoscopy, Right Ureteroscopy, Laser Lithotripsy - Basket Stone Extraction stent placement by urologist Dr. Leonard on , urinary tract infection, elevated lactic acid (2.2 on admission, and elevated lactic acid level is resolved) Discharge Exam Constitutional comfortable Eyes PERRL, conjunctivae normal, anicteric sclerae EOM intact bilaterally ENMT external ear and nose normal, oropharynx normal Neck normal visual inspection Cardiovascular RRR, no murmur, no edema Gastrointestinal (Abdomen) normal bowel sounds, soft, nontender, no hepatosplenomegaly Musculoskeletal Head/Neck/Chest: normocephalic and head atraumatic Neurologic PERRL, EOMI, accommodation nl, no face palsy, no dysarthria CN's II-XI intact bilaterally Psychiatric A+Ox3, euthymic affect Discharge Data Allergies Allergy/AdvReac Type Severity Reaction Status Date / Time Sulfa (Sulfonamide Allergy Unknown HIVES Verified 06/05/19 04:11 Antibiotics) Consultations 06/05/19 04:17 ED Decision to Admit Stat 06/05/19 08:00 Consult Urology Routine Procedures Performed Operation Date: 06/05/19 13:10 <No data on this case meets the specified criteria> Operation Date: 06/05/19 16:30 Actual Procedures p Cystoscopy, Right Ureteroscopy, Laser Lithotripsy - Basket Stone Extraction(Not Applicable) - Cindy Leonard MD Ordered Studies 06/05/19 03:29 CT abd pelvis wo con Urgent 06/05/19 16:36 FL retrograde includes kub Routine Hospital Course (1) Urinary tract obstruction due to kidney stone: Ureteral stone with hydronephrosis (right distal ureteral stone 3 to 4 mm with hydronephrosis) Cystoscopy, Right Ureteroscopy, Laser Lithotripsy - Basket Stone Extraction stent placement by urologist Dr. Leonard on 06/05/19 -This 64-year-old female who presents with right flank pain and found to have kidney stone. -burning micturitions that has been going for last 2 weeks with right sided flank pain were the symptoms -was on outpatient ciprofloxacin -CT abdomen in the ED There is a 4 mm obstructing calculus at the right vesicoureteral junction. This causes mild right hydroureteronephrosis. The bladder wall appears mildly thickened and there is pericystic stranding. Correlate clinically and with urinalysis for evidence of cystitis. -urine analysis negative in the ED but this may be false negative as patient had recent antibiotics lactic acid was 2.2 in the ED -IV fluids were started in the ED -ED provider gave imipenem -lactic acid normalized on next repeat lactic acid -admitting hospitalist switched antibiotics to ceftriaxone -admitting hospitalist discussed with urology Dr. Leonard who may offer patient urology procedure -Cystoscopy, Right Ureteroscopy, Laser Lithotripsy - Basket Stone Extraction stent placement by urologist Dr. Leonard on 06/05/19 -one more dose of ceftriaxone to be given on 06/06/19 as a post-operative antibiotic Patient to be discharged with medications of Pyridium 3 times a day as needed for dysuria for 3 days Flomax (tamsulosin) daily for 14 days acetaminophen 325 mg every 6 hours as needed for pain or fever Medications sent electronically to [facility] [address] [place] [address] Patient should call [facility] urology clinic office if any questions on urology follow up Address: [address] [place] [address] [place] [address] Scheduled appointments 06/09/2019 2:10 PM Provider Dandy Canela MD Department [facility] 06/13/2019 9:00 AM Provider Linda Nicole MD Department Dermatology [facility] (2) UTI (urinary tract infection): -management as above History of asthma -Continue home inhalers and nebs, currently stable. Obstructive sleep apnea, on CPAP -continue at night Hyperlipidemia -on statin. History of breast cancer status post mastectomy. Deep venous thrombosis prophylaxis, sequential compression devices. Discharge Diagnosis: Ureteral stone with hydronephrosis (right distal ureteral stone 3 to 4 mm with hydronephrosis), s/p Cystoscopy, Right Ureteroscopy, Laser Lithotripsy - Basket Stone Extraction stent placement by urologist Dr. Leonard on , urinary tract infection, elevated lactic acid (2.2 on admission, and elevated lactic acid level is resolved) Total Time Total Time Spent Total Time Spent (In Minutes): 40 minutes Total Time Includes: Examination of the Patient, Discharge Planning, Medication Reconciliation and Communication With Other Providers Discharge Plan Discharge Items Patient Disposition: Home - Self-Care Reason For Visit: RIGHT FLANK PAIN Discharge Diagnosis: Ureteral stone with hydronephrosis (right distal ureteral stone 3 to 4 mm with hydronephrosis), s/p Cystoscopy, Right Ureteroscopy, Laser Lithotripsy - Basket Stone Extraction stent placement by urologist Dr. Leonard on , urinary tract infection, elevated lactic acid (2.2 on admission, and elevated lactic acid level is resolved) Condition on Discharge: Good Activity: Resume your previous activity Non-emergency contact: Primary Care Provider and Urologist Call non-emergency contact if: you have any medication questions Follow-up/Referrals: Dandy Canela MD [Primary Care Provider] - Diet: Regular Addtl Attending Provider Instructions: Ureteral stone with hydronephrosis (right distal ureteral stone 3 to 4 mm with hydronephrosis) Cystoscopy, Right Ureteroscopy, Laser Lithotripsy - Basket Stone Extraction stent placement by urologist Dr. Leonard on 06/05/19 Patient to be discharged with medications of Pyridium 3 times a day as needed for dysuria for 3 days Flomax (tamsulosin) daily for 14 days acetaminophen 325 mg every 6 hours as needed for pain or fever Medications sent electronically to [facility] [place] [address] Patient should call [facility] urology clinic office if any questions on urology follow up Address: [address] [place] [address] [place] [address] Scheduled appointments 06/09/2019 2:10 PM Provider Dandy Canela MD Department [facility] 06/13/2019 9:00 AM Provider Linda Nicole MD Department Dermatology [facility] Pending Studies at Discharge: No Stand-Alone Forms: My [facility] pushd, Smoking Cessation Medications and DC Order Prescriptions: New tamsulosin 0.4 mg Capsule 0.4 mg PO QAM 14 Days Qty: 14 RF: 0 acetaminophen 325 mg tablet 325 mg PO Q6H PRN (Reason: fever or pain) 5 Days Qty: 20 RF: 0 phenazopyridine [Pyridium] 200 mg Tablet 200 mg PO TID PRN (Reason: dysuria) 3 Days Qty: 9 RF: 0 Continued zolmitriptan [Zomig] 5 mg tablet 5 mg PO Q2H PRN (Reason: Migraine Headache) RF: 0 atorvastatin 20 mg tablet 20 mg PO DAILY RF: 0 fluticasone propion-salmeterol [Advair Diskus] 100-50 mcg/dose blister with device 1 ea INHALATION UD RF: 0 A-F Beta Food 1 dose PO DAILY RF: 0 calcium carbonate-vitamin D3 [Calcium 600 + D(3)] 600 mg(1,500mg) -200 unit Tablet 1 tab PO DAILY RF: 0 Eye Promise Restore 1 dose PO DAILY RF: 0 ProAir HFA 2 puff 2 puff inhalation QID RF: 0 ipratropium-albuterol 3 ml 3 ml inhalation Q4H PRN (Reason: Shortness Of Breath Or Wheezing) RF: 0 Discharge Orders: Discharge Order (Routine); Ordered 06/06/19 Ordered By: Terrell Chao Admission Data Admit Date/Time: 06/05/19 04:58 Attending Provider: Terrell Chao Admit Provider: Stewart Scott Primary Care Provider: Dandy Canela Other Providers: Stewart Scott ; Cindy Leonard Other Interventions: Discharge Summary Assessment (RN) Last Done: 06/06/19 09:31
[2019-06-06] MEDS ORDERED: TAMSULOSIN HCL 0.4 MG CAP PO SCH (10:00)
[2019-06-06] MEDS ORDERED: cefTRIAXone SODIUM 1,000 MG in DEXTROSE 5% 50 ML IV SCH (10:00)
[2019-06-09 17:22] LABS: Component 2 DNR
== END 2019-06-06 12:41 | disposition home or self-care (01) | DRG 661 ==
LOC: ED 02:31 → 3N 04:58